=== PATIENT | female | born 1995 | race Caucasian/White ===

== ENCOUNTER 2016-10-26 16:20 | Emergency (ER) | payer MEDICAID, OTHER ==
[~2016-10-26] VITALS: Wt 56.0 kg
[~2016-10-26 16:20] MED LIST: FAMO-96 PO; ONDA4TAB8 PO
--- NOTE | 2016-10-26 17:23 | RADRPT ---
PROCEDURE: Obstetrical ultrasound greater than 14 weeks CLINICAL INDICATION: Pelvic pain TECHNIQUE: Real time sonographic imaging of the gravid uterus is performed transabdominally and mu ltiple static valdes scale and Doppler images are submitted for review as are measurements. The image s are reviewed on the PACS. COMPARISON: No relevant exams are available FINDINGS: There is a single living intrauterine gestation in variable presentation. The heart beat is e stimated at 168 bpm. The measurements are as follows: BPD:5.53 cm HC:20.19 cm AC:18.49 cm FL:4.05 cm Estimated gestational age is 22 weeks 6 days. The estimated date of delivery is 02/23/2017. The estimated weight is 563 grams. Placenta is posterior and grade 0. There is no evidence of placenta previa or abruption. The amniotic fluid is within normal limits, the maximum vertical pocket estimated at 6 cm. RPTAT:HJJR IMPRESSION: 1. Single viable intrauterine gestation estimated at 22 weeks and 6 days with the estimated date of delivery 02/23/2017. 2. Posterior grade 0 placenta without abruption. Physician Everardo Date Time Electronically viewed and signed by Physician Everardo on 10/26/2016 17:23 JR/
[2016-10-26 17:25] LABS: ADD UMIC YES; UR ASCORBIC ACID 40 mg/dL (NEGATIVE); UR BACTERIA FEW /HPF (NONE SEEN); UR BILIRUBIN (Dip) NEGATIVE (NEGATIVE); UR BLOOD (Dip) NEGATIVE (NEGATIVE); UR CLARITY SLIGHTLY CLOUDY (CLEAR); UR COLOR YELLOW (YELLOW); UR GLUCOSE (Dip) NEGATIVE (NEGATIVE); UR KETONES (Dip) TRACE mg/dL (NEGATIVE); UR LEUKOCYTE ESTERASE (Dip) 3+ Leu/ul (NEGATIVE); UR MUCUS MANY /HPF (NONE SEEN); UR NITRITE (Dip) NEGATIVE (NEGATIVE); UR RBC 9 /HPF (0-5); UR SPECIFIC GRAVITY (Dip) 1.025 (1.003-1.030); UR SQUAMOUS EPITHELIAL CELL MANY /HPF (FEW); UR TOTAL PROTEIN (Dip) 1+ mg/dl (NEGATIVE); UR UROBILINOGEN (Dip) NEGATIVE (NEGATIVE)
[2016-10-26 17:33] LABS: BASOPHILS % 0.3 % (0.0-2.0); EOSINOPHILS # 0.1 10^3/ul (0.0-0.5); EOSINOPHILS % 1.2 % (0.0-7.0); HEMATOCRIT 36.8 % (37.0-47.0); HEMOGLOBIN 12.8 g/dl (12.0-16.0); LYMPHOCYTES # 1.7 10^3/ul (0.8-2.9); LYMPHOCYTES % 16.9 % (15.0-51.0); MEAN CORPUSCULAR HEMOGLOBIN 31.4 pg (29.0-33.0); MEAN CORPUSCULAR HGB CONC 34.8 g/dl (32.0-37.0); MEAN CORPUSCULAR VOLUME 90.4 fl (82.0-101.0); MEAN PLATELET VOLUME 10.4 fl (7.4-10.4); MONOCYTE # 0.8 10^3/ul (0.3-0.9); MONOCYTES % 8.3 % (0.0-11.0); PLATELET COUNT 258 10^3/UL (140-415); RED BLOOD COUNT 4.07 10^6/ul (4.20-5.40); RED CELL DISTRIBUTION WIDTH 12.2 % (11.5-14.5)
[2016-10-26] MEDS ORDERED: CEPH-443 PO (18:53)
[2016-10-26] MEDS ORDERED: METR500T PO (18:53)
--- NOTE | 2016-10-26 19:00 | ERD ---
ER Documentation Chief Complaint Date/Time DATE: 10/26/16 TIME: 18:57 Chief Complaint PT SAYS 22 WKS PG, UNKNOWN LMP/EDC, DENIES ABD PAIN, NO VB HPI This is a 21-year-old female presents to the ER stating she is currently 22 weeks . Patient went to the ER yesterday because she had abdominal pain and was told she was . Patient denies any vaginal bleeding or any pelvic pain at this time. Patient does admit to foul-smelling vaginal discharge. Patient does not have any urinary frequency or dysuria. Patient would like to have an ultrasound done to confirm . Patient denies any nausea vomiting or diarrhea. A3. ROS 12 point review of systems was done, all negative except per HPI. Medications Home Meds Active Scripts Metronidazole* (Flagyl*) 500 Mg Tablet, 500 MG PO TID for 7 Days, TAB Prov:JANELLEBRITTANIEKITA C 10/26/16 Cephalexin* (Keflex*) 500 Mg Capsule, 500 MG PO BID for 7 Days, CAP Prov:JANELLEKITA C 10/26/16 Famotidine* (Pepcid*) 20 Mg Tablet, 20 MG PO BID for 4 Days, TAB Prov:JANELLEKITA C 02/21/16 Ondansetron Hcl* (Zofran*) 4 Mg Tablet, 4 MG PO Q6H for NAUSEA AND/OR VOMITING, #30 TAB Prov:JANELLEKITA C 02/21/16 Allergies Allergies: Coded Allergies: No Known Drug Allergies (Verified Allergy, Unknown, 10/26/16) PMhx/Soc Medical and Surgical Hx: pt denies Medical Hx, pt denies Surgical Hx History of Surgery: No Anesthesia Reaction: No Hx Neurological Disorder: No Hx Respiratory Disorders: No Hx Cardiac Disorders: No Hx Psychiatric Problems: No Hx Miscellaneous Medical Probl: No Hx Alcohol Use: No Hx Substance Use: No Hx Tobacco Use: No Smoking Status: Never smoker Physical Exam Vitals Vital Signs Date Time Temp Pulse Resp B/P Pulse Ox O2 Delivery O2 Flow Rate FiO2 10/26/16 16:26 98.5 102 18 111/66 98 Physical Exam GENERAL: The patient is well developed and appropriate for usual state of health , in no apparent distress. HEENT: Atraumatic. CHEST: Clear to auscultation bilaterally. There are no rales, wheezes or rhonchi. HEART: Regular rate and rhythm. No murmurs, clicks, rubs or gallops. ABDOMEN: Soft, nontender and nondistended. Good bowel sounds. No rebound or guarding. No gross peritonitis. No gross organomegaly or masses. No Zapien sign or McBurney point tenderness. BACK: No midline or flank tenderness. NEURO: Alert and oriented. SKIN: There is no apparent rash or petechia. The skin is warm and dry. Result Diagram: 10/26/16 1710 Results 24 hrs Laboratory Tests Test 10/26/16 16:45 10/26/16 17:10 Urine Color YELLOW Urine Clarity SLIGHTLY CLOUDY Urine pH 6.0 Urine Specific [place] 1.025 Urine Ketones TRACEmg/dL Urine Nitrite NEGATIVEmg/dL Urine Bilirubin NEGATIVEmg/dL Urine Urobilinogen NEGATIVEmg/dL Urine Leukocyte Esterase 3+Owen/ul Urine Microscopic RBC 9/HPF Urine Microscopic WBC 36/HPF Urine Squamous Epithelial Cells MANY/HPF Urine Bacteria FEW/HPF Urine Mucus MANY/HPF Urine Hemoglobin NEGATIVEmg/dL Urine Glucose NEGATIVEmg/dL Urine Total Protein 1+mg/dl White Blood Count 10.010^3/ul Red Blood Count 4.0710^6/ul Hemoglobin 12.8g/dl Hematocrit 36.8% Mean Corpuscular Volume 90.4fl Mean Corpuscular Hemoglobin 31.4pg Mean Corpuscular Hemoglobin Concent 34.8g/dl Red Cell Distribution Width 12.2% Platelet Count 58974^3/UL Mean Platelet Volume 10.4fl Neutrophils % 73.0% Lymphocytes % 16.9% Monocytes % 8.3% Eosinophils % 1.2% Basophils % 0.3% Nucleated Red Blood Cells % 0.0/100WBC Neutrophils # (Manual) 710^3/ul Lymphocytes # 1.710^3/ul Monocytes # 0.810^3/ul Eosinophils # 0.110^3/ul Basophils # 0.010^3/ul Nucleated Red Blood Cells # 0.010^3/ul Beta HCG, Quantitative 38656.0mIU/ml Procedures/MDM Differential diagnosis: Threatened , missed , incomplete , ectopic , molar , UTI, pyelonephritis. This is a 21 -year-old female presents to the ER for ultrasound as she just found out she is . Patient does not have any vaginal bleeding or pelvic pain, her ultrasound was normal and she is currently 22 weeks . Patient did have a urinary tract infection and will be treated with Keflex. She will also be treated for possible bacterial vaginosis as she does complain of foul-smelling vaginal discharge with metronidazole. Patient was told to follow-up with her primary care doctor within 1-2 days return to ER sooner if symptoms worsen. My medical decision making sure with the patient she understands and agrees with plan. Departure Diagnosis: Primary Impression: UTI (urinary tract infection) Condition: Stable Patient Instructions: Understanding Urinary Tract Infections (UTIs), Vaginal Infection: Bacterial Vaginosis Additional Instructions: Call your primary care doctor TOMORROW for an appointment during the next 1-2 days.See the doctor sooner or return here if your condition worsens before your appointment time. KITA LUIS Oct 26, 2016 19:00
[2016-10-26 19:05] VITALS: BP 118/71; PULSE 97; RESP 18; TEMP 98.1
== END 2016-10-26 19:05 | disposition home or self-care (01) ==
LOC: FTE 16:20
DX: O23.42 Unspecified infection of urinary tract in pregnancy, second trimester (principal); R10.2 Pelvic and perineal pain; R10.9 Unspecified abdominal pain; Z3A.22 22 weeks gestation of pregnancy
CPT/HCPCS: 36415; 76805; 81001; 84702; 85025; Z7502

== ENCOUNTER 2017-05-26 15:01 | Emergency (ER) | END 2017-05-26 15:10 | disposition home or self-care (01) ==